=== PATIENT | male | born 1985 | race African-American/Black ===

== ENCOUNTER 2016-11-24 22:47 | Inpatient (IN) | payer BC ==
[2016-11-24] MEDS: SODIUM CHLOR 0.9% 1000 ML INJ 1,000 ML IV SCH (21:26)
[~2016-11-24 22:47] MED LIST: ACETAMINOPHEN 325 MG TAB PO PRN; ACETAMINOPHEN/HYDROcodone 325 MG/5 MG TAB PO PRN; AMLO5TAB2 PO; BISACODYL 10 MG SUPP RECTAL PRN; DILTIAZEM INJ 125 MG in SODIUM CHLORIDE 0.9% INJ 100 ML IV SCH; LACTULOSE SYRUP 20 GM/30 ML CUP PO PRN; LISI40TA PO; MAGNESIUM HYDROXIDE SUSP 30 ML CUP PO PRN; METF500T PO; MORPHINE SULFATE 4 MG/ML INJ IV PRN; ONDANSETRON HCL 4 MG/2 ML VIAL IVP PRN; SENNOSIDES 8.6 MG TAB PO PRN; SODIUM CHLORIDE 0.9% FLUSH 10 ML FLUSH IV FLUSH PRN
[2016-11-24 23:00] VITALS: BP 179/91; PULSE 80; RESP 18; TEMP 98; O2SAT 96
[2016-11-25] VITALS (10 sets, daily range): BP systolic 138–167; BP diastolic 73–86; PULSE 62–88; RESP 20; TEMP 98; O2SAT 94–98
[2016-11-25] MEDS ORDERED: LACTULOSE SYRUP 20 GM/30 ML CUP PO PRN (00:15)
[2016-11-25] MEDS ORDERED: ACETAMINOPHEN 325 MG TAB PO PRN (00:15)
[2016-11-25] MEDS ORDERED: MAGNESIUM HYDROXIDE SUSP 30 ML CUP PO PRN (00:15)
[2016-11-25] MEDS ORDERED: SENNOSIDES 8.6 MG TAB PO PRN (00:15)
[2016-11-25] MEDS ORDERED: ONDANSETRON HCL 4 MG/2 ML VIAL IVP PRN (00:15)
[2016-11-25] MEDS ORDERED: BISACODYL 10 MG SUPP RECTAL PRN (00:15)
[2016-11-25] MEDS ORDERED: ACETAMINOPHEN/HYDROcodone 325 MG/5 MG TAB PO PRN (00:15)
[2016-11-25] MEDS ORDERED: MORPHINE SULFATE 4 MG/ML INJ IV PRN (00:15)
[2016-11-25 05:32] LABS: AUTOMATED NEUTROPHIL # 2.2 TH/MM3 (1.8-7.7); BASOPHIL % 0.7 % (0.0-2.0); EOSINOPHIL # 0.2 TH/MM3 (0-0.4); EOSINOPHIL % 3.3 % (0.0-4.0); HEMATOCRIT 40.3 % (39.0-51.0); HEMO FLAGS DIFF FINAL; LYMPH % 48.2 % (9.0-44.0); LYMPHOCYTE # 2.7 TH/MM3 (1.0-4.8); MEAN CELL VOLUME 86.1 FL (80.0-100.0); MEAN CORPUSCULAR HEMOGLOBIN 28.4 PG (27.0-34.0); MONO % 8.5 % (0.0-8.0); NEUT % 39.3 % (16.0-70.0); PLATELET COUNT 186 TH/MM3 (150-450); RED BLOOD COUNT 4.68 MIL/MM3 (4.50-5.90); RED CELL DISTRIBUTION WIDTH 14.1 % (11.6-17.2); WHITE BLOOD COUNT 5.6 TH/MM3 (4.0-11.0)
[2016-11-25 05:50] LABS: ANION GAP 8 MEQ/L (5-15); AST (GOT) 11 U/L (15-37); BICARBONATE 26.3 MEQ/L (21.0-32.0); BLOOD UREA NITROGEN 14 MG/DL (7-18); CHLORIDE 103 MEQ/L (98-107); GLOMERULAR FILTRATION RATE 111 ML/MIN (>89); POTASSIUM 3.8 MEQ/L (3.5-5.1); SODIUM (NA) 137 MEQ/L (136-145)
[2016-11-25 05:52] LABS: ALT (GPT) 28 U/L (12-78)
[2016-11-25 05:55] LABS: ALKALINE PHOSPHATASE 64 U/L (45-117); TOTAL BILIRUBIN ADULT 0.4 MG/DL (0.2-1.0)
[2016-11-25] MEDS: SODIUM CHLOR 0.9% 1000 ML INJ 1,000 ML IV SCH (07:26)
--- NOTE | 2016-11-25 08:48 | HHI.HP ---
[facility] Admission Diagnosis Diagnoses: (1) New onset atrial fibrillation (2) Diabetes mellitus, type 2 (3) Benign hypertension (4) TISH on CPAP Chief Complaint: Heart palpitations Travel History International Travel<30 Days: No Contact w/Intl Traveler <30 Da: No Traveled to Known Affected Are: No History of Present Illness 31 year-old -Citizen Of [place] medical history of diabetes type 2, hypertension was brought to the ED and subsequently admitted to [facility] for evaluation of heart palpitations associated with shortness of breath without any chest pain, which started after patient drank "Slushie" (water +sugar beverage) run 4 PM yesterday and lasted over 2 hours. She also reports trouble walking rates he had severe shortness of breath without exertions and continues heart palpitation. He was diagnosed with new onset A. fib for which she was started on Cardizem drip. During my exam this morning patient denies any shortness of breath, heart palpitation. He has no GI bleed or febrile episode. Review of Systems Except as stated in HPI: all other systems reviewed are Neg Past Family Social History Past Medical History Diabetes: Yes Hypertension: Yes Past Surgical History No previous surgery Reported Medications Amlodipine (Amlodipine Besylate) 5 Mg Tab 5 Mg PO DAILY Metformin (Metformin HCl) 500 Mg Tab 500 Mg PO BIDPC With meals Lisinopril 40 Mg Tab 40 Mg PO DAILY Allergies: Coded Allergies: No Known Allergies (Unverified , 11/24/16) Family History Father has a history of diabetes type 2, chronic kidney disease, hypertension Mother has a history of hypertension Social History Alcohol Use: Yes (OCC) Tobacco Use: No Substance Use: No Physical Exam Vital Signs Vital Signs Date Time Temp Pulse Resp B/P Pulse Ox O2 Delivery O2 Flow Rate FiO2 11/25/16 06:00 62 11/25/16 05:00 62 11/25/16 04:00 64 11/25/16 03:00 98.0 66 20 158/86 94 11/25/16 03:00 66 11/25/16 02:04 66 11/25/16 01:00 68 11/25/16 00:05 98 21 11/25/16 00:00 88 11/24/16 23:00 98.0 80 18 179/91 96 Physical Exam GENERAL: This is a well-nourished, well-developed obese patient, in no apparent distress. SKIN: No rashes, ecchymoses or lesions. Cool and dry. HEAD: Atraumatic. Normocephalic. No temporal or scalp tenderness. EYES: Pupils equal round and reactive. Extraocular motions intact. No scleral icterus. No injection or drainage. ENT: Nose without bleeding, purulent drainage or septal hematoma. Throat without erythema, tonsillar hypertrophy or exudate. Uvula midline. Airway patent. NECK: Trachea midline. No JVD or lymphadenopathy. Supple, nontender, no meningeal signs. CARDIOVASCULAR: Irregular Regular rate and rhythm without murmurs, gallops, or rubs. RESPIRATORY: Clear to auscultation. Breath sounds equal bilaterally. No wheezes , rales, or rhonchi. GASTROINTESTINAL: Abdomen soft, non-tender, nondistended. No hepato-splenomegaly , or palpable masses. No guarding. MUSCULOSKELETAL: Extremities without clubbing, cyanosis, or edema. No joint tenderness, effusion, or edema noted. No calf tenderness. Negative Homans sign bilaterally. NEUROLOGICAL: Awake and alert. Cranial nerves II through XII intact. Motor and sensory grossly within normal limits. Five out of 5 muscle strength in all muscle groups. Normal speech. Laboratory Laboratory Tests Test 11/25/16 11/25/16 01:20 04:32 Troponin I LESS THAN 0.02 LESS THAN 0.02 White Blood Count 5.6 Red Blood Count 4.68 Hemoglobin 13.3 Hematocrit 40.3 Mean Corpuscular Volume 86.1 Mean Corpuscular Hemoglobin 28.4 Mean Corpuscular Hemoglobin 33.0 Concent Red Cell Distribution Width 14.1 Platelet Count 186 Mean Platelet Volume 9.1 Neutrophils (%) (Auto) 39.3 Lymphocytes (%) (Auto) 48.2 Monocytes (%) (Auto) 8.5 Eosinophils (%) (Auto) 3.3 Basophils (%) (Auto) 0.7 Neutrophils # (Auto) 2.2 Lymphocytes # (Auto) 2.7 Monocytes # (Auto) 0.5 Eosinophils # (Auto) 0.2 Basophils # (Auto) 0.0 CBC Comment DIFF FINAL Differential Comment Sodium Level 137 Potassium Level 3.8 Chloride Level 103 Carbon Dioxide Level 26.3 Anion Gap 8 Blood Urea Nitrogen 14 Creatinine 0.95 Estimat Glomerular Filtration 111 Rate Random Glucose 148 Calcium Level 8.1 Total Bilirubin 0.4 Aspartate Amino Transf 11 (AST/SGOT) Alanine Aminotransferase 28 (ALT/SGPT) Alkaline Phosphatase 64 Total Protein 7.1 Albumin 3.4 Result Diagram: 11/25/1643111/25/16431 Assessment and Plan Problem List: (1) New onset atrial fibrillation ICD Code: I48.91 Status: Acute (2) Diabetes mellitus, type 2 ICD Code: E11.9 Status: Chronic (3) Benign hypertension ICD Code: I10 Status: Chronic (4) TISH on CPAP ICD Code: G47.33 Status: Chronic Assessment and Plan 31-year-old man with New onset atrial fibrillation rapid ventricular response Chest x-ray 11/24/16 noted and review by me with no acute finding Cardiology consultation appreciated Currently on Cardizem drip which has been weaned off Start Cardizem 240mg Daily, Eliquis 5 mg twice a day 2-D echo completed and report pending Diabetes type 2 Start insulin sliding scale and resume outpatient medications Hypertension Lisinopril Obstructive sleep apnea Using own CPAP DVT prophylaxis Eliquis Code Status Full code Discussed Condition With Patient Physician Certification 2 Midnight Certification Type: Admission for Inpatient Services Order for Inpatient Services The services are ordered in accordance with Medicare regulations or non- Medicare payer requirements, as applicable. In the case of services not specified as inpatient-only, they are appropriately provided as inpatient services in accordance with the 2-midnight benchmark. Estimated LOS (days): 2 days is the estimated time the patient will need to remain in the hospital, assuming treatment plan goals are met and no additional complications. Post-Hospital Plan: Not yet determined Jack Sahu MD Nov 25, 2016 08:48
[2016-11-25] MEDS ORDERED: DILTIAZEM-CD 240 MG CAP ER PO SCH (09:00)
[2016-11-25] MEDS ORDERED: LISINOPRIL 20 MG TAB PO SCH (09:00)
[2016-11-25] MEDS ORDERED: SODIUM CHLORIDE 0.9% FLUSH 10 ML FLUSH IV FLUSH SCH (09:00)
[2016-11-25] MEDS ORDERED: DOCUSATE SODIUM 50 MG/SENNA 8.6 MG TAB PO SCH ×2 (09:00)
[2016-11-25] MEDS ORDERED: APIXABAN 5 MG TABLET PO SCH (09:00)
[2016-11-25] MEDS ORDERED: GLUCAGON 1 MG/ML VIAL OTHER PRN (09:30)
[2016-11-25] MEDS ORDERED: DEXTROSE 50% IN WATER 50 ML VIAL(D50) IV PRN (09:30)
[2016-11-25] MEDS ORDERED: SITA50 PO (10:57)
[2016-11-25] MEDS ORDERED: METF1000 PO (10:57)
[2016-11-25] MEDS ORDERED: amLODIPine BESYLATE 5 MG TAB PO SCH (11:00)
[2016-11-25] MEDS ORDERED: INSULIN ASPART SUPPLEMENTAL SCALE SQ SCH (11:00)
--- NOTE | 2016-11-25 11:02 | EC ---
Study Study Date:11/25/2016 STUDY CONCLUSIONS SUMMARY - Left ventricle: The cavity size was normal. Wall thickness was increased in a pattern of mild LVH. There was moderate focal basal hypertrophy of the septum. Systolic function was normal. The estimated ejection fraction was in the range of 55% to 60%. Wall motion was normal; there were no regional wall motion abnormalities. - Left atrium: The atrium was mildly dilated. - Right ventricle: The cavity size was mildly dilated. Wall thickness was normal. If LV function is below 40, please consider prescribing an ACEI or ARB or document rationale for non-use. PROCEDURE DATA STUDY STATUS: Elective. Procedure: Transthoracic echocardiography. Image quality was suboptimal. The study was technically limited due to body habitus. Scanning was performed from the parasternal, apical, and subcostal acoustic windows. Study completion: The patient tolerated the procedure well. Transthoracic echocardiography. M-mode, complete 2D, complete spectral Doppler, and color Doppler. Height: Height: 72in. Weight: Weight: 449.1lb. Body mass index: BMI: 61kg/m^2. Body surface area: BSA: 3.01m^2. Patient status: Inpatient. CARDIAC ANATOMY LEFT VENTRICLE: The cavity size was normal. Wall thickness was increased in a pattern of mild LVH. There was moderate focal basal hypertrophy of the septum. Systolic function was normal. The estimated ejection fraction was in the range of 55% to 60%. Wall motion was normal; there were no regional wall motion abnormalities. AORTIC VALVE: Trileaflet; normal thickness leaflets. Doppler: Transvalvular velocity was within the normal range. There was no stenosis. No regurgitation. AORTA: Aortic root: The aortic root was normal in size. MITRAL VALVE: Structurally normal valve. Doppler: Transvalvular velocity was within the normal range. There was no evidence for stenosis. Trace regurgitation. Peak gradient: 2mm Hg (D). LEFT ATRIUM: The atrium was mildly dilated. RIGHT VENTRICLE: Poorly visualized. The cavity size was mildly dilated. Wall thickness was normal. PULMONIC VALVE: Doppler: Transvalvular velocity was within the normal range. There was no evidence for stenosis. No regurgitation. TRICUSPID VALVE: Poorly visualized. Structurally normal valve. Doppler: Transvalvular velocity was within the normal range. Trace regurgitation. PULMONARY ARTERY: The main pulmonary artery was normal-sized. Systolic pressure was within the normal range. RIGHT ATRIUM: Poorly visualized. The atrium was normal in size. PERICARDIUM: There was no pericardial effusion. SYSTEMIC VEINS: Inferior vena cava: The vessel was normal in size. Patient weight: 449.1lb _Ejection fraction:_ 65-75% _Fractional shortening:_ 32% up to 5Kg 5-11.5Kg 11.6-22.9Kg 23-45Kg 45-57Kg Aortic Root 7-13 <17 13-22 17-27 17-27 LA diam 6-13 <23 24-38 33-47 37-40 RVID 10-17 7-15 7-15 7-18 8-17 LVIDd 12-22 <32 24-38 33-47 37-40 LVPW 2-4 3-6 5-7 6-8 7-8 IVS 2-4 3-6 5-7 6-8 7-8 BASIC MEASUREMENTS ADULT Normal Left ventricle LV internal dimension, ED, chordal level, 50.7 mm 43-52 PLAX LV internal dimension, ES, chordal level, *38.7 mm 23-38 PLAX Fractional shortening, chordal level, PLAX *24 % >29 LV posterior wall thickness, ED 14.7 mm IVS/LVPW ratio, ED *1.48 <1.3 Ventricular septum Septal thickness, ED 21.8 mm Aortic valve Leaflet separation *28 mm 15-26 Right ventricle RV internal dimension, ED, PLAX 33.5 mm 19-38 BASIC MEASUREMENTS ADULT Normal Aortic valve Leaflet separation *28 mm 15-26 Aorta Root diameter, ED *39 mm 20-37 Left atrium Anterior-posterior dimension, ES *41 mm 19-40 Anterior-posterior dimension index, ES 1.36 cm/m^2 <2.2 LA/aortic root ratio 1.05 DOPPLER MEASUREMENTS ADULT Normal Mitral valve Peak E-wave velocity 72.1 cm/s Peak A-wave velocity 43.9 cm/s Peak gradient, D 2 mm Hg Peak E/A ratio 1.6 LEGEND: Mean values are shown as u=mean value. Asterisk (*) whitmore values outside specified normal range. Prepared and signed by David Darling [id number]
[2016-11-25] MEDS ORDERED: metFORMIN HCL 500 MG TAB PO SCH (11:30)
[2016-11-25] MEDS ORDERED: APIX5TAB PO (11:33)
[2016-11-25] MEDS ORDERED: CARD240C6 PO (11:33)
--- NOTE | 2016-11-25 11:34 | HHI.PR ---
Addendum to Inpatient Note Addendum Reason: Additional Documentation Additional Information Currently rate controlled Echo with EF of 55-60% Patient is stable therefore he will be discharged home Discharge patient to home Condition on discharge: Improved ADA Diet as tolerated Ad Natacha activity Rx written: see EMR Follow-up with primary care physician in one week Audiology in 2 weeks Jack Sahu MD Nov 25, 2016 11:34
--- NOTE | 2016-11-25 14:25 | MB ---
cc: DANI PHELPS MD DATE OF CONSULTATION: 11/25/2016 REASON FOR CONSULTATION New onset atrial fibrillation. HISTORY OF PRESENT ILLNESS The patient is a very pleasant 31-year-old gentleman with a history of morbid obesity (weight approximately 450 pounds), hypertension, diabetes and sleep apnea. He denies any known cardiac history. He was in his usual state of health when he drank a slushed ice drink quickly and suddenly began having palpitations and shortness of breath. He presented to the emergency department and was found to be in rapid atrial fibrillation, was initially started on a Cardizem drip and then admitted for further workup. He has since converted to sinus rhythm and he is now asymptomatic. He denies any other symptoms of chest pain, residual shortness of breath or palpitations, lightheadedness, dizziness or syncope. As far as he knows, he has never had atrial fibrillation before. The patient denies significant alcohol use. Denies drug use or tobacco use and says he drinks about two caffeinated beverages daily. Yesterday did not include any above normal caffeine use. PAST MEDICAL HISTORY 1. Hypertension. 2. Morbid obesity. 3. Diabetes. 4. Obstructive sleep apnea. HOME MEDICATIONS 1. Metformin 510 mg b.i.d. 2. Lisinopril 40 mg daily. 3. Amlodipine 5 mg daily. ALLERGIES NO KNOWN DRUG ALLERGIES. PHYSICAL EXAMINATION VITAL SIGNS: Afebrile, pulse 62, respiratory rate 20, BP 158/86, satting 94 on room air. GENERAL: A very pleasant, morbidly obese, -[place] gentleman in no distress. NECK: No JVD but difficult exam due to obesity. LUNGS: Clear auscultation bilaterally. CARDIOVASCULAR: Very distant heart sounds due to obesity. No major murmurs appreciated. Regular rate and rhythm. ABDOMEN: Abdomen is benign. EXTREMITIES: No edema. LABORATORY DATA White count 5.6, hematocrit 40.3, platelets 186. Sodium 137, potassium 3.8, chloride 103, bicarb 26.3, BUN 14, creatinine 0.95. Cardiac enzymes are negative x2. White count 5.6, hematocrit 40.3, platelets 186. EKG showed atrial fibrillation at a rate of [address] changes. Current telemetry shows sinus rhythm. IMPRESSION New onset paroxysmal atrial fibrillation. The patient appears to have a cold drink-induced episode of atrial fibrillation. The patient has risk factors for stroke including hypertension and obesity and thus will require anticoagulation at least in the [id number] term while we assess his long-term atrial fibrillation burden. I will have him undergo an echocardiogram. I will start Eliquis 5 mg b.i.d. and change his amlodipine to diltiazem. Further recommendations will be based on his clinical course. If his echocardiogram is normal, he could potentially go home to followup with me in the office. Thank you again for the opportunity to participate this patient's care. MD VIOLETA Wayne/ELZBIETA /8:24 AM /2:06 PM
== END 2016-11-25 13:00 | disposition home or self-care (01) | DRG 309 ==
LOC: NEDDLT 22:47 → HCIS 23:15
PROVIDERS: ADMIT Hospitalist; ATTEND Hospitalist
DX: I48.0 Paroxysmal atrial fibrillation (principal); Z68.44 Body mass index [BMI] 60.0-69.9, adult; I10 Essential (primary) hypertension; E66.01 Morbid (severe) obesity due to excess calories; E11.9 Type 2 diabetes mellitus without complications; G47.33 Obstructive sleep apnea (adult) (pediatric); Z79.84 Long term (current) use of oral hypoglycemic drugs; Z82.49 Family history of ischemic heart disease and other diseases of the circulatory system; Z83.3 Family history of diabetes mellitus; Z84.1 Family history of disorders of kidney and ureter
CPT/HCPCS: 71010; 80053; 82948; 83735; 84443; 84484; 85025; 85379; 85610; 85730; 93005; 93306; 96365; 96372; 96375; 96376; J1650; J7030